=== PATIENT | female | born 1985 | race Caucasian/White ===

== ENCOUNTER 2016-08-10 15:05 | Emergency (ER) | payer OTHER ==
[~2016-08-10] VITALS: Ht 157.5 cm; Wt 71.5 kg
[~2016-08-10 15:05] MED LIST: PREN1TAB62 PO
[2016-08-10 15:07] VITALS: Ht 157.5 cm; Wt 71.5 kg
[2016-08-10] MEDS ORDERED: ONDANSETRON 4 MG INJ IV STA (15:56)
[2016-08-10] MEDS ORDERED: KETOROLAC 30 MG INJ IV STA (15:56)
[2016-08-10] MEDS ORDERED: ACETAMINOPHEN 325 MG TAB PO ONE (16:00)
[2016-08-10 16:24] LABS: ADD UMIC YES; URINE BILIRUBIN (Dip) NEGATIVE (NEGATIVE); URINE BLOOD (Dip) 3+ (NEGATIVE); URINE COLOR LT. YELLOW (YELLOW); URINE GLUCOSE (Dip) NEGATIVE (NEGATIVE); URINE KETONES (Dip) NEGATIVE (NEGATIVE); URINE LEUKOCYTE ESTERASE (Dip) 2+ (NEGATIVE); URINE NITRITE (Dip) NEGATIVE (NEGATIVE); URINE TOTAL PROTEIN (Dip) NEGATIVE (NEGATIVE); URINE UROBILINOGEN (Dip) 0.2 E.U./dL (0.1-1.0)
[2016-08-10 16:32] LABS: ADD SCAN DIFF NO
[2016-08-10 16:33] LABS: BACTERIA,URINE MODERATE; SQUAMOUS EPITHELIAL CELL,UR MODERATE
[2016-08-10 16:34] LABS: BASOPHILS % 0.2 % (0.0-2.0); EOSINOPHILS # 0.1 10^3/ul (0.0-0.5); EOSINOPHILS % 1.1 % (0.0-7.0); HEMATOCRIT 38.3 % (37.0-47.0); HEMOGLOBIN 12.7 g/dl (12.0-16.0); LYMPHOCYTES # 2.1 10^3/ul (0.8-2.9); LYMPHOCYTES % 17.2 % (15.0-51.0); MEAN CORPUSCULAR HEMOGLOBIN 28.3 pg (29.0-33.0); MEAN CORPUSCULAR HGB CONC 33.2 g/dl (32.0-37.0); MEAN CORPUSCULAR VOLUME 85.3 fl (82.0-101.0); MEAN PLATELET VOLUME 9.6 fl (7.4-10.4); MONOCYTE # 0.8 10^3/ul (0.3-0.9); MONOCYTES % 6.2 % (0.0-11.0); NEUTROPHIL # 9.2 10^3/ul (1.6-7.5); NEUTROPHILS % 75.1 % (39.0-77.0); PLATELET COUNT 270 10^3/UL (140-415); RED BLOOD COUNT 4.49 10^6/ul (4.20-5.40); RED CELL DISTRIBUTION WIDTH 13.2 % (11.5-14.5); WHITE BLOOD COUNT 12.2 10^3/ul (4.8-10.8)
[2016-08-10 16:50] LABS: ALBUMIN 4.4 g/dl (3.3-4.9)
[2016-08-10 16:51] LABS: POTASSIUM 3.5 mmol/L (3.5-5.1)
[2016-08-10 16:53] LABS: ALBUMIN/GLOBULIN RATIO 1.62; BILIRUBIN,INDIRECT 0.3 mg/dl (0-1.1); BILIRUBIN,TOTAL 0.3 mg/dl (0.2-1.3); CREATININE 0.57 mg/dl (0.44-1.00); TOTAL PROTEIN 7.1 g/dl (6.1-8.1)
[2016-08-10 16:54] LABS: CALCIUM 9.3 mg/dl (8.4-10.2)
[2016-08-10] MEDS ORDERED: SOD CHLORIDE 0.9% 1,000 ML IV ONE (17:10)
[2016-08-10] MEDS ORDERED: CEFTRIAXONE 1 GM/50 ML (PMX) 50 ML IVPB ONE (17:30)
[2016-08-10] MEDS ORDERED: IBUP-1542 PO (17:53)
[2016-08-10] MEDS ORDERED: CIPR500S2 PO (17:53)
--- NOTE | 2016-08-10 17:55 | ERD ---
ER Documentation Chief Complaint Date/Time DATE: 08/10/16 TIME: 17:54 Chief Complaint DYSURIA THIS MORNING HPI This 31-year-old female complains of dysuria since this morning. She said the subjective fever and has a low-grade fever triage. She has nausea but no vomiting. She has some lower abdominal pain in the middle without right or left localized abdominal pain and no upper abdominal pain. She denies any vaginal discharge. Denies ROS All systems reviewed and are negative except as per history of present illness. Medications Home Meds Active Scripts Amoxicillin/Potassium Clav (Amox-Clav 875-125 mg Tablet) 875-125 mg Tab, 1 TAB PO BID for 10 Days, #20 TAB Prov:BRITTANIE HERNANDEZ MD 08/10/16 Ibuprofen* (Motrin*) 600 Mg Tab, 600 MG PO Q6H Y for PAIN, #20 TAB Prov:BRITTANIE HERNANDEZ MD 08/10/16 Reported Medications Vit-Iron Fumarate-FA ( Vitamin Tablet) 1 Each Tablet, 1 TAB PO DAILY, TAB 07/12/15 Discontinued Scripts Ciprofloxacin (Ciprofloxacin) 500 Mg/5 Ml Suri.mc.rec, 500 MG PO BID for 10 Days , #20 TAB Prov:BRITTANIE HERNANDEZ MD 08/10/16 Allergies Allergies: Coded Allergies: No Known Allergy (Unverified , 07/12/15) PMhx/Soc Medical and Surgical Hx: pt denies Medical Hx, pt denies Surgical Hx Hx Alcohol Use: No Hx Substance Use: No Hx Tobacco Use: No Smoking Status: Never smoker Physical Exam Vitals Vital Signs Date Time Temp Pulse Resp B/P Pulse Ox O2 Delivery O2 Flow Rate FiO2 08/10/16 15:07 100.2 106 18 130/80 97 Physical Exam Const: [] Alert, [id number] per Head: Atraumatic Eyes: Normal Conjunctiva ENT: Normal External Ears, Nose and Mouth. Neck: Full range of motion..~ No meningismus. Resp: Clear to auscultation bilaterally Cardio: Regular rate and rhythm, no murmurs Abd: Soft, mild suprapubic tenderness without tenderness at McBurney's point no Fox sign. No rebound., non distended. Normal bowel sounds Skin: No petechiae or rashes Back: No midline or flank tenderness Ext: No cyanosis, or edema Neur: Awake and alert Psych: Normal Mood and Affect Result Diagram: 08/10/16 1624 08/10/16 1624 Results 24 hrs Laboratory Tests Test 08/10/16 16:10 08/10/16 16:24 Urine Color LT. YELLOW Urine Clarity SLIGHTLY CLOUDY Urine pH 6.0 Urine Specific [place] 1.010 Urine Ketones NEGATIVE Urine Nitrite NEGATIVE Urine Bilirubin NEGATIVE Urine Urobilinogen 0.2 E.U./dL Urine Leukocyte Esterase 2+ Urine Microscopic RBC 5-10/HPF Urine Microscopic WBC >200/HPF Urine Squamous Epithelial Cells MODERATE Urine Bacteria MODERATE Urine Hemoglobin 3+ Urine Glucose NEGATIVE% Urine Total Protein NEGATIVE White Blood Count 12.210^3/ul Red Blood Count 4.4910^6/ul Hemoglobin 12.7g/dl Hematocrit 38.3% Mean Corpuscular Volume 85.3fl Mean Corpuscular Hemoglobin 28.3pg Mean Corpuscular Hemoglobin Concent 33.2g/dl Red Cell Distribution Width 13.2% Platelet Count 74971^3/UL Mean Platelet Volume 9.6fl Neutrophils % 75.1% Lymphocytes % 17.2% Monocytes % 6.2% Eosinophils % 1.1% Basophils % 0.2% Nucleated Red Blood Cells % 0.0/100WBC Neutrophils # 9.210^3/ul Lymphocytes # 2.110^3/ul Monocytes # 0.810^3/ul Eosinophils # 0.110^3/ul Basophils # 0.010^3/ul Nucleated Red Blood Cells # 0.010^3/ul Sodium Level 140mmol/L Potassium Level 3.5mmol/L Chloride Level 101mmol/L Carbon Dioxide Level 26mmol/L Anion Gap 17 Blood Urea Nitrogen 9mg/dl Creatinine 0.57mg/dl Glucose Level 94mg/dl Calcium Level 9.3mg/dl Total Bilirubin 0.3mg/dl Direct Bilirubin 0.00mg/dl Indirect Bilirubin 0.3mg/dl Aspartate Amino Transf (AST/SGOT) 28IU/L Alanine Aminotransferase (ALT/SGPT) 60IU/L Alkaline Phosphatase 93IU/L Total Protein 7.1g/dl Albumin 4.4g/dl Globulin 2.70g/dl Albumin/Globulin Ratio 1.62 Lipase 36U/L Current Medications Medications (Trade) Dose Ordered Sig/Jazmin Route PRN Reason Start Time Stop Time Status Last Admin Dose Admin Ondansetron HCl (Zofran Inj) 4 mg ONCE STAT IV 08/10/16 15:56 08/10/16 15:58 DC 08/10/16 16:27 Ketorolac Tromethamine (Toradol) 30 mg ONCE STAT IV 08/10/16 15:56 08/10/16 15:58 DC 08/10/16 16:27 Acetaminophen 650 mg 650 mg ONCE ONCE PO 08/10/16 16:00 08/10/16 16:01 DC 08/10/16 16:27 Ceftriaxone Sodium 50 ml @ 100 mls/hr ONCE ONCE IVPB 08/10/16 17:30 08/10/16 17:59 DC 08/10/16 17:46 Sodium Chloride (NS) 1,000 ml @ 0 mls/hr Q0M ONCE IV 08/10/16 17:10 08/10/16 17:30 DC 08/10/16 17:47 Procedures/MDM Urine shows positive leukocytes and nitrites and many bacteria. Urine was sent for culture. IV was obtained. CBC shows old blood cell count of 12.2. Patient was given 1 L normal saline IV, Rocephin 1 g IV, Toradol 30 mg IV. Patient signs and symptoms of acute UTI possible early pyelonephritis. She is signs and symptoms do not suggest appendicitis, pneumonia, acute abdomen, obstruction. No signs or symptoms to suggest PID currently. Urine was sent for gonorrhea chlamydia. Patient was treated with Augmentin, given that the patient wishes to continue breast-feeding, and ibuprofen and instructions for clear fluids at home. She should return for persistent fevers, vomiting, worsening pain, new worsening symptoms in the next day or with primary care doctor this week. Departure Diagnosis: Primary Impression: Fever Fever type: unspecified Qualified Code: R50.9 - Fever, unspecified fever cause Additional Impression: Dysuria Condition: Stable Patient Instructions: Understanding Urinary Tract Infections (UTIs), Fever Control (Adult) Additional Instructions: JYOTHI MUCH AGUA. Examines normal hoy. Cheque otro vez con bowman doctor primario en el proximo vargas or regresa para mas o nueva simptomas. BRITTANIE HERNANDEZ MD August 10, 2016 17:55
[2016-08-10] MEDS ORDERED: AMOX1TAB10 PO (18:26)
[2016-08-10 18:31] VITALS: BP 105/68; PULSE 71; RESP 16
== END 2016-08-10 18:34 | disposition home or self-care (01) ==
LOC: FTE 15:05
DX: R50.9 Fever, unspecified (principal)
CPT/HCPCS: 80053; 81001; 83690; 85025; 87086; 87591; 96374; 96375; J0696; J1885; J2405; J7030; Z7502; Z7610; 81003

== ENCOUNTER 2018-08-25 07:23 | Inpatient (IN) | payer MEDICAID ==
[~2018-08-25] VITALS: Ht 152.4 cm; Wt 81.7 kg
[~2018-08-25 07:23] MED LIST changes: +AMOX1TAB10 PO; +EPHEDrine 25 MG/5 ML SYG ONE; +IBUP-1542 PO
[2018-08-25] MEDS ORDERED: LACTATED RINGER'S 1,000 ML IV SCH (07:42)
[2018-08-25] MEDS ORDERED: CEFAZOLIN 2 GM/50 ML (PMX) 50 ML IVPB SCH (08:00)
[2018-08-25] MEDS ORDERED: CARBOPROST 250 MCG INJ IM PRN ×2 (08:00→18:30)
[2018-08-25] MEDS ORDERED: OXYTOCIN 30 UNITS/LR 500 ML IV PRN ×2 (08:00→18:30)
[2018-08-25] MEDS ORDERED: METHYLERGONOVINE 0.2 MG INJ IM PRN ×2 (08:00→18:30)
[2018-08-25] MEDS ORDERED: MISOPROSTOL 200 MCG TAB PR PRN ×2 (08:00→18:30)
[2018-08-25 08:24] VITALS: Ht 152.4 cm; Wt 81.7 kg
[2018-08-25 08:25] VITALS: BP 125/63; PULSE 67; RESP 17
--- NOTE | 2018-08-25 09:33 | HP ---
Date/Time of Note Date/Time of Note DATE: 08/25/18 TIME: 09:30 OB - History Hx of Present Free Text/Dictation 33 years old 3 para 2-0-0-2 with single intrauterine at 39 weeks and 2 previous desires repeat delivery and permanent surgical sterilization. She states good movement. She denies nausea, vomiting, shortness of breath, chest pain, headache, visual changes, vaginal bleeding or LOF. Chief Complaint: Scheduled for repeat delivery and bilateral tubal ligation Estimated Due Date: Sep 01, 2018 : 3 Para: 2 Spontaneous : 0 Therapeutic : 0 Care: Good Care Ultrasounds: Normal mid trimester US Obstetrical Complications: None Medical Complications: None Past Family/Social History * Past Medical, Surgical, Family and Obstetric Histories reviewed from chart. Blood Type: O+ Rubella: immune RPR/VDRL: Negative GBS Status: Negative HBsAG: Negative OB Admission Exam Vital Signs Vital Signs Vital Signs Date Temp Pulse Resp B/P (MAP) Pulse Ox O2 O2 Flow FiO2 Time Delivery Rate 08/25/18 98.1 67 17 125/63 08:25 (83) Physical Exam HEENT: WNL Heart: Rhythm Normal Lungs: Clear Abdomen: WNL Extremities: Normal Membranes: Intact Heart Rate: 130's Accelerations: Accelerations Present Decelerations: No Decelerations Varibility: Moderate Contractions on Admission: None Last 72 hours Lab Results CBC & BMP 08/25/18 08:20 OB Assessment/Plan Other plan: 33 years old she [id number] with 2 previous delivery at 39 weeks desires repeat delivery and permanent surgical sterilization. -FHR: No sign of metabolic acidosis- Category I -Continuous EFM, toco -CBC, blood type and screen -Please see the orders -O+/Rubella: Immune -GBS: Negative The risk of delivery including but not limited to bleeding, infection, injury to other organs (bowel, bladder, ureter, vessels, nerves), injury to fetus, blood transfusion, blood transfusion related infection, risk of anesthesia, adhesion, needs for future , removal of uterus or any other indicated surgery, permanent surgical sterilization, other contraceptive options including IUD, increase risk of ectopic if failure of procedure occurs discussed with the patient and her family. She expressed understanding. All of her questions were answered. She signed the informed consent. PHYSICIAN'S VERIFICATION OF INFORMED CONSENT The patient was counseled regarding the procedure, its indications, risks, potential complications and alternatives and any questions were answered. Consent was obtained. PLANNED PROCEDURE/TREATMENT: delivery with possible using vacuum/f orceps and any other indicated surgery PHYSICIAN'S VERIFICATION OF INFORMED CONSENT FOR BLOOD TRANSFUSION: There is a reasonable possibility that blood transfusion will be necessary as a result of t he patient's procedure. I have discussed the following with the patient/patient's legal inside outside sales representative: An explanation of the benefits and risks of the transfusion of blood or blood products and the possible alternatives. All questions have been answered to the patient's satisfaction. INFORMED CONSENT:The patient has been informed of: The nature of the proposed care, treatment, services, medications, interventions or procedures. Potential benefits, risks or side effects, including potential problems related to recuperation. The likelihood of achieving care treatment and service goals. Reasonable alternatives to the proposed care, treatment and service. The relevant risks, benefits and side effects related to alternatives, including the possible results of not receiving care, treatment and services. When indicated, any limitations on the confidentiality of information learned from or about the patient. If appropriate, the risks, benefits and alternatives of the drugs to be used for sedation/analgesia including moderate sedation. If appropriate, patient has been provided information on the risks, benefits and alternatives to the transfusion of blood and/or blood products. If appropriate, patient has been provided information regarding the Nimesh Ayo Blood Act. KELLY MONTEIRO August 25, 2018 09:33
[2018-08-25] MEDS ORDERED: morphine SULFATE/PF (10 MG/10 ML) INJ ONE (10:30)
[2018-08-25] MEDS ORDERED: LACTATED RINGER'S 1,000 ML IV ONE (10:49)
--- NOTE | 2018-08-25 10:49 | PREAC ---
Date/Time of Note Date/Time of Note DATE: 08/25/18 TIME: 10:46 Anesthesia Eval and Record Evaluation Time Pre-Procedure Interview DATE: 08/25/18 TIME: 10:17 Age 33 Sex female NPO: 8 hrs Preoperative diagnosis iup @ 39 wks., , sterilization request, prev. c/s, contractions Planned procedure repeat c/s, btl. Past Medical History Past Medical History: None : : (3), Para:, Gestational age: (39 wks.) Surgery & Anesthesia Issues No known issue Meds Anticoagulation: No Beta Anyi within 24 hr: No Reason Beta Anyi not given: Pt. not on B-Anyi Active Scripts Amoxicillin/Potassium Clav (Amox-Clav 875-125 mg Tablet) 875-125 mg Tab, 1 TAB PO BID for 10 Days, #20 TAB Prov:BRITTANIE HERNANDEZ MD 08/10/16 Ibuprofen* (Motrin*) 600 Mg Tab, 600 MG PO Q6H PRN for PAIN, #20 TAB Prov:BRITTANIE HERNANDEZ MD 08/10/16 Reported Medications Vit-Iron Fumarate-FA ( Vitamin Tablet) 1 Each Tablet, 1 TAB PO DAILY, TAB 07/12/15 Current Medications Lactated Ringer's 1,000 ml @ 125 mls/hr Q8H IV Last administered on 08/25/18at 08:11; Admin Dose 125 MLS/HR; Start 08/25/18 at 07:42 Cefazolin Sodium/ Dextrose 50 ml @ 100 mls/hr ONCE IVPB ; Start 08/25/18 at 08:00 Oxytocin/Lactated Ringer's 500 ml @ 0 mls/hr ONCE PRN IV .VAGINAL BLEEDING; Start 08/25/18 at 08:00 Methylergonovine Maleate (Methergine) 0.2 mg ONCE PRN IM .VAGINAL BLEEDING; Start 08/25/18 at 08:00 Carboprost Tromethamine (Hemabate) 250 mcg ONCE PRN IM .VAGINAL BLEEDING; Start 08/25/18 at 08:00 Misoprostol (Cytotec) 1,000 mcg ONCE PRN [place] .VAGINAL BLEEDING; Start 08/25/18 at 08:00 Meds reviewed: Yes Allergies Coded Allergies: No Known Allergy (Unverified , 07/12/15) Allergies Reviewed: Yes Labs/Studies Labs Reviewed: Reviewed by anesthesiologist Result Diagram: 08/25/18 0820 Laboratory Tests 08/25/18 08:20 Blood Bank Test 08/25/18 08:20 Antibody Screen NEGATIVE Blood Type O POSITIVE Rh Immune Globulin Candidate NO test: Positive Studies: ECG (n/a), CXR (n/a) Pre-procedure Exam Last vitals Vital Signs Date Temp Pulse Resp B/P (MAP) Pulse Ox O2 O2 Flow FiO2 Time Delivery Rate 08/25/18 98.1 67 17 125/63 08:25 (83) Airway: Adequate mouth opening, Adequate thyromental dist Mallampati: Mallampati II Teeth: Normal Lung: Normal Heart: Normal ASA Physical Status ASA physical status: 2 Emergency: E Planned Anesthetic General/MAC: MAC Neuraxial: Spinal Planned Pain Management Sub-arachniod narcotics, Local by surgeon Pre-operative Attestations Prior to commencing anesthesia and surgery, the patient was re-evaluated, there was verification of: *The patient's identity *The results of appropriate recent lab work and preoperative vital signs *The above evaluation not changing prior to induction *Anesthetic plan, risk benefits, alternative and complications discussed with patient/family; questions answered; patient/family understands, accepts and wishes to proceed. Supervisor Furnace Process used VOLODYMYR MONTEJO MD August 25, 2018 10:49
[2018-08-25] MEDS ORDERED: ONDANSETRON 4 MG INJ ONE (10:52)
[2018-08-25] MEDS ORDERED: HYDROmorphONE 0.5 MG/0.5 ML SYG IV PRN ×2 (11:00)
[2018-08-25] MEDS ORDERED: NALBUPHINE HCL (10 MG/1 ML) INJ IV PRN (11:00)
[2018-08-25] MEDS ORDERED: ONDANSETRON 4 MG INJ IV PRN (11:00)
[2018-08-25] MEDS ORDERED: LORAZEPAM 2 MG INJ IV PRN (11:00)
[2018-08-25] MEDS ORDERED: MEPERIDINE 25 MG INJ IV PRN (11:00)
[2018-08-25] MEDS ORDERED: ZOLPIDEM 5 MG TAB PO PRN (11:00)
[2018-08-25] MEDS ORDERED: DIPHENHYDRAMINE 50 MG INJ IV PRN ×2 (11:00)
[2018-08-25] MEDS ORDERED: NALOXONE (0.4 MG/ML) INJ IV PRN (11:00)
[2018-08-25] MEDS ORDERED: MIDAZOLAM 1 MG/ML 2 ML INJ IV PRN (11:00)
[2018-08-25] MEDS ORDERED: KETOROLAC 30 MG INJ IV PRN (11:00)
[2018-08-25] MEDS ORDERED: MIDAZOLAM 1 MG/ML 2 ML INJ ONE (11:08)
[2018-08-25] MEDS ORDERED: OXYTOCIN 10 UNIT INJ ONE (11:27)
--- NOTE | 2018-08-25 12:33 | PAC ---
Date/Time of Note Date/Time of Note DATE: 08/25/18 TIME: 12:33 Post-Anesthesia Notes Post-Anesthesia Note Last documented vital signs Vital Signs Date Temp Pulse Resp B/P (MAP) Pulse Ox O2 O2 Flow FiO2 Time Delivery Rate 08/25/18 98.1 67 17 125/63 08:25 (83) Activity: WNL Respiratory function: WNL Cardiovascular function: WNL Mental status: Baseline Pain reasonably controlled: Yes Hydration appropriate: Yes Nausea/Vomiting absent: Yes VOLODYMYR MONTEJO MD August 25, 2018 12:33
--- NOTE | 2018-08-25 12:54 | OPR ---
Operative Report Planned Procedure Procedure date August 25, 2018 Procedure(s) 1. Repeat low transverse delivery 2. Bilateral tubal ligation Performed by see signature line Stop Attacher: JUANITA CUADRA MD Anesthesiologist: VOLODYMYR MONTEJO MD Pre-procedure diagnosis 33 years old she [id number] with 2 previous delivery at 39 weeks desires repeat delivery and permanent surgical sterilization. [id number] Anesthesia Type: [id number] epidural Post-Procedure Post-procedure diagnosis 33 years old she [id number] with 2 previous delivery at 39 weeks desires repeat delivery and permanent surgical sterilization. Findings 1. Normal uterus, fallopian tubes and ovaries 2. Viable female in cephalic presentation. 9 at one minute and 9 in 5 minutes. Weight: 7 pounds 12 ounces - 3520 g. Time of delivery: 11:06 3. Placenta with three vessel cord 4. Amniotic fluid - Clear Estimated Blood Loss: 500 - 600 mls Specimen(s) none Grafts/Implant(s) none Complication(s) none Pt Condition post procedure: stable Disposition: PACU Procedure Description INDICATION AND HISTORY: A 33 years old she [id number] with 2 previous delivery at 39 weeks desires repeat delivery and permanent surgical sterilization. The risk of delivery including but not limited to bleeding, infection, injury to other organs (bowel, bladder, ureter, vessels, nerves), injury to fetus, blood transfusion, blood transfusion related infection, risk of anesthesia, adhesion, needs for future , removal of uterus or any other indicated surgery, permanent surgical sterilization, other contraceptive options including IUD, increased risk of ectopic if failure of procedure occurs discussed with the patient and her family. She expressed understanding. All of her questions were answered. She signed the informed consent. DESCRIPTION OF OPERATION: The patient was taken to the operating room, where she was identified and the procedure was verified. The patient received two gram of Ancef 30 minutes prior to surgery. Spinal anesthesia was placed by anesthesiologist. The patient placed in the dorsal supine position with a left tilt. The heart rate was 132bpm. The patient was then prepped and draped in the normal sterile [facility] ion. A Pfannenstiel skin incision was made and carried down to the fascia with knife. The fascia was incised in the midline and the fascial incision was carried laterally with Castillo scissors. The superior portion of the fascial incision was then grasped with Kalyn clamps and tented up and dissected off the underlying rectus muscle with sharp dissection. The lower portion of the fascial incision was then made in a similar fashion. The rectus muscle was and the peritoneum was entered. The peritoneal incision was then stretched and an Edd retractor was inserted. Then, an incision was made in the lower uterine segment in a transverse fashion with a knife and extended bluntly. The was delivered atraumatically in cephalic presentation with the above findings. The umbilical cord was clamped and cut. The neonatology resuscitation team was present and the baby was handed to them. A cord blood sample was obtained for further evaluation. The placenta and membrane, which appeared normal were Removed. The uterus was exteriorized and cleared of all clot and debris. The uterus was then closed in a two layer fashion with 0- Monocryl. At the time of closure, hemostasis was noted. Then the left fallopian tube was identified and was grasped using Valentine clamp, segment of distal fallopian tube including fimbria was double ligated with O- plain, excised and sent to pathology. Same procedure repeated at the right side. Hemostasis of stump of both fallopian tube reassured. The gutters were irrig ated. The peritoneum was reapproximated with 3-0 Vicryl. The muscle was reapproximated with 3-0 Vicryl. The fascia was approximated with 0-Vicryl in a running fashion. The subcutaneous tissue was re approximated with 3-0 vicryl. The skin was closed with 4-0 Monocryl. All instruments, sponges and needle counts were correct x3. The patient tolerated the procedure well. She tra nsferred to the recovery room in stable condition. KELLY MONTEIRO August 25, 2018 12:54
[2018-08-25 18:00] VITALS: BP 110/59; RESP 18
[2018-08-25] MEDS ORDERED: OXYTOCIN 30 UNITS/LR 500 ML IV SCH (18:09)
[2018-08-25] MEDS ORDERED: METHYLERGONOVINE 0.2 MG TAB PO PRN (18:30)
[2018-08-25] MEDS ORDERED: MAGNESIUM HYDROXIDE 30ML CUP PO PRN (18:30)
[2018-08-25 20:10] VITALS: BP 108/62; PULSE 68; RESP 17
[2018-08-25] MEDS: SENNA/DOCUSATE NA (8.6MG/50MG) TAB PO SCH (21:59)
[2018-08-26] VITALS: BP 105/56; PULSE 65; RESP 18
[2018-08-26] MEDS: LANOLIN HPA 1 PKT TOP PRN (00:06)
[2018-08-26] MEDS: DEXTROSE 5%-LR 1,000 ML IV SCH ×2 (00:06→09:28)
[2018-08-26 04:00] VITALS: BP 96/56; PULSE 69; RESP 18
--- NOTE | 2018-08-26 04:02 | OPPN ---
Date/Time of Note Date/Time of Note DATE: 08/26/18 TIME: 03:59 Anesthesia Follow up Anesthesia Follow up Last documented vital signs Vital Signs Date Temp Pulse Resp B/P (MAP) Pulse Ox O2 O2 Flow FiO2 Time Delivery Rate 08/26/18 98.4 65 18 105/56 97 Room Air 00:00 (72) Respiratory function: WNL Cardiovascular function: WNL Comments S: pt. is POD #1. min. bt pain. min. n/v. ambulating. min,. use of bt. pain meds ie. nsaids/opiates. O: vss, afeb A: min. bt. pain sec. to it mso4. P: no complications. VOLODYMYR MONTEJO MD August 26, 2018 04:02
[2018-08-26] MEDS: IBUPROFEN 800 MG TAB PO SCH ×3 (05:28→21:30)
[2018-08-26 08:00] VITALS: BP 104/69; PULSE 69; RESP 18
[2018-08-26] MEDS: SENNA/DOCUSATE NA (8.6MG/50MG) TAB PO SCH ×2 (09:27→21:29)
[2018-08-26] MEDS ORDERED: HYDROCODONE/APAP (5/325) TAB NGT PRN (11:00)
[2018-08-26] MEDS ORDERED: DIPHTH/TET/ACEL PERTUSS (ADULT) 0.5 ML VIAL IM* ONE (11:00)
[2018-08-26] MEDS ORDERED: HYDROCODONE/APAP (5/325) TAB GTB SCH (14:00)
--- NOTE | 2018-08-26 14:59 | QN ---
Documentation Comment Postop day #1 Status post repeat and BTL Patient stable and afebrile Vital signs stable VS - Last 72 Hours, by Label Date Temp Pulse Resp B/P (MAP) Pulse Ox O2 O2 Flow FiO2 Time Delivery Rate 08/26/18 97.8 69 18 104/69 Room Air 08:00 (81) 08/26/18 98.5 69 18 96/56 (69) 97 Room Air 04:00 08/26/18 98.4 65 18 105/56 97 Room Air 00:00 (72) 08/25/18 98.2 68 17 108/62 97 Room Air 20:10 (77) 08/25/18 98.5 18 110/59 98 Room Air 18:00 (76) 08/25/18 98.1 67 17 125/63 08:25 (83) Hematology - 72 Hrs Test 08/25/18 08:20 08/26/18 06:27 Hematocrit 38.6 % (37.0-47.0) 35.2 % (37.0-47.0) L Hemoglobin 13.0 g/dl (12.0-16.0) 11.6 g/dl (12.0-16.0) L Mean Corpuscular 28.7 pg (29.0-33.0) L 28.7 pg (29.0-33.0) L Hemoglobin Mean Corpuscular 33.7 g/dl (32.0-37.0) 33.0 g/dl (32.0-37.0) Hemoglobin Concent Mean Corpuscular Volume 85.2 fl (82.0-101.0) 87.1 fl (82.0-101.0) Mean Platelet Volume 10.7 fl (7.4-10.4) H 10.7 fl (7.4-10.4) H Platelet Count 208 10^3/UL (140-415) # 173 10^3/UL (140-415) Red Blood Count 4.53 10^6/ul (4.20-5.40) 4.04 10^6/ul (4.20-5.40) L Red Cell Distribution 13.8 % (11.5-14.5) 13.6 % (11.5-14.5) Width White Blood Count 5.1 10^3/ul (4.8-10.8) # 8.0 10^3/ul (4.8-10.8) # Abdomen soft, fundus firm Incision clean,dry,intact Extremities nontender Assessment and plan Patient stable and doing well Encouraged to ambulate Continue with routine postop care NUVIA SNELL MD August 26, 2018 14:59
[2018-08-26 16:00] VITALS: BP 106/55; PULSE 68; RESP 20
[2018-08-26 19:45] VITALS: BP 113/64; PULSE 69; RESP 18
[2018-08-27 04:05] VITALS: BP 91/52; PULSE 54; RESP 18
[2018-08-27] MEDS: IBUPROFEN 800 MG TAB PO SCH ×3 (05:35→21:37)
[2018-08-27 08:00] VITALS: BP 107/59; PULSE 60; RESP 18
[2018-08-27] MEDS: SENNA/DOCUSATE NA (8.6MG/50MG) TAB PO SCH ×3 (08:46→21:37)
--- NOTE | 2018-08-27 11:51 | QN ---
Documentation Comment POD#2 is stable afebrile No VB +flatus +voids VS stable Gen NAD Abd soft NT ND Incision intact Genitalia No blood at perineum --->Discharge plan tomorrow --->Ambulation QIAN JIMENEZ M.D. August 27, 2018 11:51
[2018-08-27 16:00] VITALS: BP 108/65; PULSE 64; RESP 18
[2018-08-27 19:45] VITALS: BP 118/67; PULSE 68; RESP 18
[2018-08-28 04:25] VITALS: BP 102/66; PULSE 55; RESP 18
[2018-08-28] MEDS: IBUPROFEN 800 MG TAB PO SCH (06:08)
[2018-08-28 08:00] VITALS: BP 110/66; PULSE 57; RESP 18
[2018-08-28 08:28] VITALS: BP 110/66; PULSE 57; RESP 18
[2018-08-28] MEDS: SENNA/DOCUSATE NA (8.6MG/50MG) TAB PO SCH (09:00)
[2018-08-28] MEDS ORDERED: DIPHTH/TET/ACEL PERTUSS (ADULT) 0.5 ML VIAL IM* ONE ×2 (09:00→11:00)
[2018-08-28] MEDS ORDERED: MEASLES,MUMPS,RUBELLA VACCINE INJ SC* ONE (09:00)
--- NOTE | 2018-08-28 12:26 | PN ---
Date/Time of Note Date/Time of Note DATE: 08/28/18 TIME: 12:24 OB Subjective Subjective Subjective POD#3 Patient is doing well. She denies nausea, vomiting, shortness of breath, chest pain, headache. She has been ambulating without difficulty, tolerating regular diet. Pain is well controlled on current medications OB Objective Objective Objective VS - Last 72 Hours, by Label Date Temp Pulse Resp B/P (MAP) Pulse Ox O2 O2 Flow FiO2 Time Delivery Rate 08/28/18 98.2 57 18 110/66 08:28 (81) 08/28/18 98.2 57 18 110/66 Room Air 08:00 (81) 08/28/18 98.0 55 18 102/66 Room Air 04:25 (78) 08/27/18 98.1 68 18 118/67 Room Air 19:45 (84) 08/27/18 98.6 64 18 108/65 Room Air 16:00 (79) 08/27/18 98.3 60 18 107/59 Room Air 08:00 (75) 08/27/18 97.7 54 18 91/52 (65) Room Air 04:05 08/26/18 99.4 69 18 113/64 Room Air 19:45 (80) 08/26/18 98.8 68 20 106/55 Room Air 16:00 (72) 08/26/18 97.8 69 18 104/69 Room Air 08:00 (81) 08/26/18 98.5 69 18 96/56 (69) 97 Room Air 04:00 08/26/18 98.4 65 18 105/56 97 Room Air 00:00 (72) 08/25/18 98.2 68 17 108/62 97 Room Air 20:10 (77) 08/25/18 98.5 18 110/59 98 Room Air 18:00 (76) General: AAO X 3, comfortable, NAD, appropriate mood and affect. ABD: +BS. Soft, non-tender. Uterus 2 cm below umbilicus Incision: Clear, dry, intact. No erythema, drainage or induration. Flank: No CVA tenderness (B/L) LE: Mild edema. No clubbing, cyanosis, thigh or calf tenderness (B/L). Homans 'sign is negative OB Assessment/Plan Other plan: 33-year-old -0-0-3 s/p repeat delivery and bilateral tubal ligation. POD#3 - AF, VSS - Baby is doing well, at bed side. She is bonding well - Contraception methods with R/B/A/FR discussed - Continue care - Discharge home - Rx and instruction given - Follow up in one and 6 weeks KELLY MONTEIRO August 28, 2018 12:26
--- NOTE | 2018-08-28 12:27 | DS ---
Date/Time of Note Date/Time of Note DATE: 08/28/18 TIME: 12:27 Obstetrical Discharge Record Final Diagnosis Final Diagnosis: Term delivered Other Final Diagnosis 33-year-old -0-0-3 s/p repeat delivery and bilateral tubal ligation. POD#3. course was unremarkable. She is ambulating and tolerating regular diet she is voiding without difficulty. Pain is controlled on current medication. - AF, VSS - Baby is doing well, at bed side. She is bonding well - Contraception methods with R/B/A/FR discussed - Continue care - Discharge home - Rx and instruction given - Follow up in one and 6 weeks Section Section: Repeat Condition on Discharge Physical Assessment Voiding: Yes Bowel Movement: Yes Breast: Soft, non-tender Fundus: Firm Calf Tenderness: No Patient Condition: Stable KELLY MONTEIRO August 28, 2018 12:27
[2018-08-28] MEDS: LANOLIN HPA 1 PKT TOP PRN (13:09)
--- NOTE | 2018-08-29 15:16 | DELSUM ---
Delivery Summary A-C Datetime Report Generated by CPN: 08/29/2018 15:16 DELIVERY PERSONNEL Paraffin Machine Operator: Ashley, Wenbing MATERNAL INFORMATION Delivery Anesthesia: Spinal Medications in Delivery: SEE ANESTHESIA NOTES Delivery QBL (ml): 700 Placenta Cultured: No Maternal Complications: Other RN Comments: SCHEDULE REPEAT WITH BTL LABOR SUMMARY EDC: 09/01/2018 00:00 No. Babies in Womb: 1 Attempted: No Labor Anesthesia: Intrathecal LABOR INFORMATION Reason for Induction: Not Applicable Oxytocin: N/A Group B Beta Strep: Negative Antibiotics # of Doses: 1 Antibiotics Time of Last Dose: 08/25/2018 10:55 Steroids Given: None Reason Steroids Not Administered: Not Applicable MEMBRANES Membranes Rupture Method: Artificial Rupture of Membranes: 08/25/2018 11:06 Length of Rupture (hr): 0.00 Amniotic Fluid Color: Clear Amniotic Fluid Amount: Moderate Amniotic Fluid Odor: None STAGES OF LABOR Stage 3 hr: 0 Stage 3 min: 1 CSECTION DELIVERY Primary Indication: Repeat Elective CSection Urgency: Elective CSection Incidence: Repeat Labor: No Labor Elective: Elective CSection Incision: Lower Uterine Transverse Sterilization Procedure: Nichelle BABY A INFORMATION Delivery Date/Time: 08/25/2018 11:06 Method of Delivery: Born in Route : No : N/A Forceps: N/A Vacuum Extraction: N/A Shoulder Dystocia : N/A SHOULDER DYSTOCIA BABY A Infant Delivery Date/Time: 08/25/2018 11:06 PRESENTATION/POSITION BABY A Presentation: Cephalic Cephalic Presentation: N/A Vertex Position: Left Occipital Anterior Breech Presentation: N/A PLACENTA INFORMATION BABY A Placenta Delivery Time : 08/25/2018 11:07 Placenta Method of Delivery: Manual Removal Placenta Status: Delivered SCORES BABY A Heart Rate 1 min: >100 bpm Resp Effort 1 min: Good Cry Reflex Irritability 1 min: Cough/Sneeze/Pulls Away Muscle Tone 1 min: Active Motion Color 1 min: Body [place], Extremit Blue Resuscitation Effort 1 min: Tactile Stimulation SCORE 1 MIN: 9 Heart Rate 5 min: >100 bpm Resp Effort 5 min: Good Cry Reflex Irritability 5 min: Cough/Sneeze/Pulls Away Muscle Tone 5 min: Active Motion Color 5 min: Body [place], Extremit Blue SCORE 5 MIN: 9 INFANT INFORMATION BABY A Gestational Age at Delivery: 39.0 Gestational Status: Full Term- 39- 40.6 Weeks Outcome : Liveborn Infant Condition : Stable Infant Sex: Female IDENTIFICATION/MEDS BABY A ID Band Number: [id number] ID Band Location: Right Leg; Left Arm Sensor Applied: Yes Sensor Number: [id number] Sensor Location : Cord Clamp WEIGHT/LENGTH BABY A Birthweight (gm): 3520 Weight (lb): 7 Infant Weight (oz): 12 Length (in): 20.00 Length (cm): 50.80 CORD INFORMATION BABY A No. Cord Vessels: 3 Nuchal Cord : Around Neck x1, Loose Cord Blood Taken: Yes Suction: Mouth; Nose ASSESSMENT BABY A Complications: None Physical Findings at Delivery: Within Normal Limits Infant Respirations: Appears Normal Physician Recruiter/ALS Called : No Infant Care By: /hermes Transferred To: Remains with Mother
== END 2018-08-28 13:15 | disposition home or self-care (01) | DRG 785 ==
LOC: L-D 07:23 → PP1 18:00
PROVIDERS: ADMIT Obstetrics & Gynecology; ATTEND Obstetrics & Gynecology
PROC: 0UB70ZZ Excision of Bilateral Fallopian Tubes, Open Approach (ICD-10-PCS; 2018-08-25)
PROC: 10D00Z1 Extraction of Products of Conception, Low, Open Approach (ICD-10-PCS; principal; 2018-08-25 09:30)
DX: O34.211 Maternal care for low transverse scar from previous cesarean delivery (principal); Z3A.39 39 weeks gestation of pregnancy; Z37.0 Single live birth; Z30.2 Encounter for sterilization; Z23 Encounter for immunization
CPT/HCPCS: 85025; 85610; 85730; 86592; 86850; 86900; 86901; 87340; 88302; 90715; 99464; J0690; J1200; J1885; J2250; J2274; J2405; J2590; J7120; J7121